=== PATIENT | male | born 1970 | race Caucasian/White ===

== ENCOUNTER 2021-02-11 15:43 | Observation (INO) ==
[2021-02-11 16:17] LABS: Basophils % 0.2 % (0.0-0.8); Eosinophils % 0.7 % (0.00-10.9); Hematocrit 53.8 VOL% (42.0-52.0); Hemoglobin 17.8 GM/DL (14.0-18.0); Immature Granulocytes % 0.7 %; Immature Granulocytes Absolute 0.04 #; Lymphocytes # 1.6 10*3/uL (1.4-4.0); Lymphocytes % 27.6 % (21.2-54.2); Mean Corpuscular HGB Conc 33.1 GM/DL (32-36); Mean Corpuscular Volume 97.3 FL (87-102); Mean Platelet Volume 10.9 FL (9.6-12.0); Monocytes % 10.1 % (1.7-12.7); Neutrophils % 60.7 % (38.7-73.9); Platelet Count 107 T/CUMM (130-400); Red Blood Count 5.53 MC/CUMM (3.8-5.5); Red Cell Distribution Width 12.8 % (9.3-17.3); White Blood Count 5.9 T/CUMM (4-12)
[2021-02-11 16:29] LABS: Albumin 3.9 G/DL (3.4-5.0); Bilirubin,Total 1.1 MG/DL (0.2-1.0); Calcium 9.6 MG/DL (8.5-10.1); Osmolality,Calculated 278.3 MOS/KG (273-304); Potassium 3.8 MMOL/L (3.5-5.1); Total Protein 6.9 G/DL (6.4-8.2)
[2021-02-11 18:01] LABS: INR 1.1; PT Patient Result 11.9 SECS (9.8-11.9); Partial Thromboplastin Time 26.2 SECS (23.9-33.8)
[2021-02-11] MEDS ORDERED: ASPIRIN EC 325 MG TABLET PO STA (18:19)
[2021-02-11] MEDS ORDERED: ASPIRIN 325 MG TABLET ONE (18:23)
[2021-02-11] MEDS ORDERED: MORPHINE 4 MG/1 ML VIAL IV STA (18:31)
[2021-02-11] MEDS ORDERED: ONDANSETRON 4 MG/2 ML VIAL IV ONE (18:31)
[2021-02-11 18:52] LABS: Bilirubin,Urine Negative (Negative); Blood, Urine Negative (Negative); Glucose,Urine (UA) Negative (Negative); Ketones,Urine Negative (Negative); Nitrite,Urine Negative (Negative); Protein,Urine Negative; RBC,Urine <1 /HPF (0-4); Urine Appearance CLEAR (Clear); Urine Color Yellow (Yellow); Urine Specific Gravity 1.006 (1.001-1.035); Urine Urobilinogen < 2.0 EU/DL (0.2-1.0)
[2021-02-11 19:10] LABS: Barbiturates Screen,Urine Negative (Negative); Benzodiazepines Screen,Urine Negative (Negative); Cannabinoid Screen,Urine Positive (Negative); Opiate Screen,Urine Negative (Negative); Phencyclidine Screen,Urine Negative (Negative)
[2021-02-11] MEDS ORDERED: ONDANSETRON 4 MG/2 ML VIAL IV PRN (20:09)
[2021-02-11] MEDS ORDERED: GLUCAGON 1 MG VIAL IM PRN (20:09)
[2021-02-11] MEDS ORDERED: ZALEPLON 5 MG CAPSULE PO PRN (20:09)
[2021-02-11] MEDS ORDERED: hydrALAZINE 20 MG/1 ML VIAL IV PRN (20:09)
[2021-02-11] MEDS ORDERED: MORPHINE 4 MG/1 ML VIAL IV PRN (20:09)
[2021-02-11] MEDS ORDERED: DEXTROSE 50% 25 GM/50 ML VIAL IV PRN (20:09)
[2021-02-11] MEDS ORDERED: DOCUSATE SODIUM 100 MG CAPSULE PO PRN (20:09)
[2021-02-11] MEDS: SODIUM CHLORIDE 0.9% 1,000 ML IV SCH (23:16)
[2021-02-11] MEDS: ENOXAPARIN 40 MG/0.4 ML SYRINGE SUBCUT SCH (23:16)
[2021-02-12] MEDS: SODIUM CHLORIDE 0.9% 1,000 ML IV SCH ×3 (05:34→15:58)
[2021-02-12 05:40] LABS: Basophils % 0.3 % (0.0-0.8); Eosinophils # 0.1 10*3/uL (0.0-0.87); Eosinophils % 1.5 % (0.00-10.9); Hematocrit 35.2 VOL% (42.0-52.0); Hemoglobin 11.8 GM/DL (14.0-18.0); Immature Granulocytes % 0.6 %; Immature Granulocytes Absolute 0.02 #; Lymphocytes # 1.2 10*3/uL (1.4-4.0); Lymphocytes % 34.4 % (21.2-54.2); Mean Corpuscular HGB Conc 33.5 GM/DL (32-36); Mean Corpuscular Volume 99.2 FL (87-102); Mean Platelet Volume 11.5 FL (9.6-12.0); Monocytes % 12.8 % (1.7-12.7); Neutrophils % 50.4 % (38.7-73.9); Platelet Count 61 T/CUMM (130-400); Red Blood Count 3.55 MC/CUMM (3.8-5.5); Red Cell Distribution Width 12.9 % (9.3-17.3); White Blood Count 3.4 T/CUMM (4-12)
[2021-02-12 06:10] LABS: Platelet Estimate Decreased
[2021-02-12 09:13] LABS: Albumin 3.3 G/DL (3.4-5.0); Bilirubin,Total 1.6 MG/DL (0.2-1.0); Osmolality,Calculated 272.7 MOS/KG (273-304); Potassium 4.2 MMOL/L (3.5-5.1); Risk Ratio 4.35; Total Protein 6.4 G/DL (6.4-8.2)
[2021-02-12 09:18] LABS: Calcium 5.8 MG/DL (8.5-10.1)
[2021-02-12] MEDS: PANTOPRAZOLE 40 MG TABLET PO SCH (09:57)
[2021-02-12] MEDS: ASPIRIN CHEW 81 MG TABLET PO SCH (09:57)
[2021-02-12 10:07] LABS: Bilirubin,Urine Negative (Negative); Blood, Urine Negative (Negative); Glucose,Urine (UA) Negative (Negative); Ketones,Urine Negative (Negative); Mucus,Urine Occasional /LPF (Occasional); Nitrite,Urine Negative (Negative); Protein,Urine Negative; RBC,Urine 1 /HPF (0-4); Urine Appearance CLEAR (Clear); Urine Color Yellow (Yellow); Urine Specific Gravity 1.013 (1.001-1.035); WBC,Urine 1 /HPF (0-6)
[2021-02-12 10:08] LABS: Basophils % 0.5 % (0.0-0.8); Eosinophils # 0.1 10*3/uL (0.0-0.87); Eosinophils % 1.5 % (0.00-10.9); Immature Granulocytes % 0.5 %; Immature Granulocytes Absolute 0.02 #; Lymphocytes # 1.3 10*3/uL (1.4-4.0); Lymphocytes % 30.9 % (21.2-54.2); Mean Corpuscular Volume 97.2 FL (87-102); Mean Platelet Volume 11.6 FL (9.6-12.0); Monocytes % 11.1 % (1.7-12.7); Neutrophils % 55.5 % (38.7-73.9); White Blood Count 4.1 T/CUMM (4-12)
[2021-02-12 10:10] LABS: Hemoglobin 16.3 GM/DL (14.0-18.0); Red Blood Count 4.94 MC/CUMM (3.8-5.5)
[2021-02-12 10:11] LABS: Platelet Count 79 T/CUMM (130-400)
[2021-02-12 10:19] LABS: Albumin 3.2 G/DL (3.4-5.0); Bilirubin,Total 1.5 MG/DL (0.2-1.0); Calcium 8.7 MG/DL (8.5-10.1); Osmolality,Calculated 274.5 MOS/KG (273-304); Potassium 4.4 MMOL/L (3.5-5.1); Total Protein 6.2 G/DL (6.4-8.2)
[2021-02-12 10:25] LABS: Platelet Estimate Decreased
[2021-02-12] MEDS: ENOXAPARIN 40 MG/0.4 ML SYRINGE SUBCUT SCH (21:35)
[2021-02-13] MEDS: SODIUM CHLORIDE 0.9% 1,000 ML IV SCH ×2 (00:38→05:03)
[2021-02-13 07:56] VITALS: BP 111/67
[2021-02-13] MEDS: ASPIRIN CHEW 81 MG TABLET PO SCH (08:56)
[2021-02-13] MEDS: PANTOPRAZOLE 40 MG TABLET PO SCH (08:56)
== END 2021-02-13 11:00 | disposition home or self-care (01) ==
LOC: N.EDINP 15:43 → N.ED 15:43 → N.TELES 21:33
PROVIDERS: ADMIT Internal Medicine; ATTEND Internal Medicine